=== PATIENT | female | born 1940 | race Caucasian/White ===

== ENCOUNTER 2021-05-23 10:34 | Day surgery (SDC) | payer MEDICARE, OTHER ==
[~2021-05-23] VITALS: Ht 165.1 cm; Wt 85.0 kg
[~2021-05-23 10:34] MED LIST: AMARYL1 MG PO; CENTRUM SILVER1 TA2 PO; CRANBERRY1 POW PO; CRESTOR 10MG10 MG PO; METFORMIN500 MG PO; NORVASC 10MG10 MG PO; OSTEO-BI-FLEX 21 TAB PO; PAXIL 20MG20 MG PO; PROBIOTIC FORMU1 CAP PO; VANCOMYCIN PO; VITAMIN D3400 IU PO
--- NOTE | 2021-05-23 11:30 | NUR ---
Stage 1 pressure ulcer found on patients bottom upon admission.
[2021-05-23 12:25] VITALS: BP 134/63; PULSE 66; TEMP 98.2
[2021-05-23] MEDS ORDERED: NEURONTIN100 MG/CAP PO (13:05)
[2021-05-23] MEDS ORDERED: TYLENOL 500MG500 MG PO (13:15)
[2021-05-23] MEDS ORDERED: ARMOUR THYROID90 MG PO ×2 (13:16→13:19)
[2021-05-23] MEDS ORDERED: PRILOSEC 20MG20 MG PO (13:20)
[2021-05-23] MEDS ORDERED: ARMOUR THYROID60 MG PO (13:21)
[2021-05-23] MEDS ORDERED: CLARITIN 1010 MG/TAB PO (13:23)
[2021-05-23] MEDS ORDERED: CRANBERRY FRUI425 MG PO (13:23)
[2021-05-23] MEDS ORDERED: JANUVIA50 MG PO (13:25)
[2021-05-23] MEDS ORDERED: AMARYL 2MG T2 MG/TAB PO (13:26)
[2021-05-23] MEDS ORDERED: LANTUS100 U/ML SQ (13:32)
[2021-05-23] MEDS ORDERED: PRINIVIL10 MG PO (13:35)
[2021-05-23] MEDS ORDERED: MACRODANTIN50 MG/CA1 PO (13:37)
[2021-05-23] MEDS ORDERED: MELATONIN5 M1 PO (13:39)
[2021-05-23] MEDS ORDERED: NOVOLOG 100U100 U/M1 SQ (13:41)
[2021-05-23] MEDS ORDERED: CRESTOR 10MG10 MG PO (13:45)
[2021-05-23] MEDS ORDERED: THERA-M ENHANCE1 TAB PO (13:46)
[2021-05-23] MEDS ORDERED: VITAMINC1000TA PO (13:47)
[2021-05-23] MEDS ORDERED: PYRIDIUM 100MG100 MG PO (13:55)
[2021-05-23 14:40] VITALS: BP 127/50; PULSE 71; TEMP 97.9
--- NOTE | 2021-05-23 14:40 | NUR ---
Patient arrived back to [facility] via cart. Postop vital signs started and stable. Patient is alert drinking water and request pudding. Rails up, call light in reach. Nephew brought to bedside.
[2021-05-23 14:55] VITALS: BP 132/50; PULSE 71
--- NOTE | 2021-05-23 14:55 | NUR ---
Patient sitting up in bed. Vital signs stable. Tolerating food and drink well. family in room. Rails up, call light in reach.
[2021-05-23 15:10] VITALS: BP 129/53; PULSE 63
--- NOTE | 2021-05-23 15:10 | NUR ---
Patient resting in bed. Vital signs obtained. Patient is tolerating food and drink well. Patient reports that she has urinated in bed. Reviewed discharge instructions and education materials with patietn and family. Informed patient that I had given report to nurse at [facility] and to give discharge folder to nurse.
--- NOTE | 2021-05-23 15:30 | NUR ---
Gave phone report to Asha LAMBERT at [facility] about patient procedure, status and meeting discharge criteria. Nurse verbalized understanding, denies having any questions and states she will call for transportation.
--- NOTE | 2021-05-23 15:45 | NUR ---
Removed IV with no complication. Cleaned patient from urinary incontinence and assisted her to dress.
--- NOTE | 2021-05-23 16:05 | NUR ---
Transported patient with her belonging and discharge instructions to half-way transportation with nephew.
== END 2021-05-23 16:05 | disposition home or self-care (01) ==
LOC: SDCO 10:34
DX: N36.42 Intrinsic sphincter deficiency (ISD) (principal); N39.3 Stress incontinence (female) (male); M19.90 Unspecified osteoarthritis, unspecified site; E11.9 Type 2 diabetes mellitus without complications; I10 Essential (primary) hypertension; Z79.899 Other long term (current) drug therapy; Z79.4 Long term (current) use of insulin
CPT/HCPCS: J0690; J2405; J2704; J3010; J7030; L8606